=== PATIENT | male | born 1950 | race Caucasian/White ===

== ENCOUNTER 2024-01-01 07:32 | Day surgery (SDC) | payer SELFPAY ==
[2023-12-28 12:29] VITALS: BMI 31.6
[2024-01-01] MEDS ORDERED: MIDAZOLAM HCL 2 MG/2 ML SINGLE DOSE VIAL ONE (08:33)
[2024-01-01] MEDS ORDERED: ONDANSETRON 4 MG/2 ML VIAL ONE ×2 (08:33→12:38)
[2024-01-01] MEDS ORDERED: PROPOFOL 40 ML ONE (08:33)
[2024-01-01] MEDS ORDERED: DEXAMETHASONE SOD PHOSPHATE 4 MG/1 ML VIAL ONE (08:33)
[2024-01-01] MEDS ORDERED: ceFAZolin SODIUM 1 GM VIAL ONE ×2 (08:33→09:48)
[2024-01-01] MEDS ORDERED: POVIDONE-IODINE 5% OPHTHALMIC PREP 30 ML SOLUTION ONE ×2 (09:48→11:31)
[2024-01-01] MEDS ORDERED: TETRACAINE 0.5% OPHTH SOLN 2 ML BOTTLE ONE (09:48)
[2024-01-01] MEDS ORDERED: LIDOCAINE 1%/EPI 1:100000 (20 ML MULTI DOSE VIAL) ONE (09:48)
[2024-01-01] MEDS ORDERED: ERYTHROMYCIN 0.5% OPHTHALMIC OINTMENT 3.5 GM TUBE ONE (09:48)
[2024-01-01] MEDS ORDERED: PROPOFOL 60 ML ONE (10:34)
[2024-01-01] MEDS ORDERED: PROPOFOL 20 ML ONE (11:25)
[2024-01-01] MEDS ORDERED: ROCURONIUM BROMIDE 50 MG/5 ML SYRINGE ONE (12:18)
[2024-01-01] MEDS ORDERED: THROMBIN (BOVINE) 5,000 UNIT VIAL TP ONE (12:19)
[2024-01-01] MEDS ORDERED: ePHEDrine SULFATE 50 MG/1 ML AMPULE ONE (12:30)
[2024-01-01] MEDS ORDERED: oxyCODONE HCL 5 MG TABLET PO PRN (14:31)
[2024-01-01] MEDS ORDERED: ONDANSETRON 4 MG/2 ML VIAL IVPUSH PRN (14:31)
[2024-01-01] MEDS ORDERED: LACTATED RINGERS SOLUTION 1,000 ML IV SCH (14:45)
[2024-01-01 16:12] VITALS: TEMP 98.4
[2024-01-01 16:25] VITALS: BP 121/76; PULSE 74; RESP 14
== END 2024-01-01 17:07 | disposition home or self-care (01) ==
LOC: FASU 07:32
PROVIDERS: ATTEND Ophthalmology
PROC: 080N0ZZ Alteration of Right Upper Eyelid, Open Approach (ICD-10-PCS; 2024-01-01)
PROC: 080P0ZZ Alteration of Left Upper Eyelid, Open Approach (ICD-10-PCS; 2024-01-01)
PROC: 080Q0ZZ Alteration of Right Lower Eyelid, Open Approach (ICD-10-PCS; 2024-01-01)
PROC: 08SR0ZZ Reposition Left Lower Eyelid, Open Approach (ICD-10-PCS; 2024-01-01)
PROC: 08SQ0ZZ Reposition Right Lower Eyelid, Open Approach (ICD-10-PCS; 2024-01-01)
PROC: 080R0ZZ Alteration of Left Lower Eyelid, Open Approach (ICD-10-PCS; principal; 2024-01-01 10:51)
DX: H02.835 Dermatochalasis of left lower eyelid (principal); H02.832 Dermatochalasis of right lower eyelid; H02.834 Dermatochalasis of left upper eyelid; H02.831 Dermatochalasis of right upper eyelid; H02.002 Unspecified entropion of right lower eyelid; H02.005 Unspecified entropion of left lower eyelid
CPT/HCPCS: 94760